=== PATIENT | male | born 1960 | race Caucasian/White ===

== ENCOUNTER 2017-02-28 13:18 | Emergency (ER) | payer OTHER ==
[~2017-02-28] VITALS: Ht 193 cm; Wt 110.0 kg
[2017-02-28 13:20] VITALS: BP 170/100; PULSE 60; RESP 20; TEMP 97.9; O2SAT 97
--- NOTE | 2017-02-28 13:25 | PD ---
Physical Exam Time Seen by Provider: 13:23 Narrative 56 y/o male presents for medical clearance. There was a strange fume in his plane and he was sent here by [employer] for evaluation Vital signs reviewed. seen at triage desk. Awaiting bed placement. Data Data Last Documented VS Vital Signs Date Time Temp Pulse Resp B/P Pulse Ox O2 Delivery O2 Flow Rate FiO2 02/28/17 13:20 97.9 60 20 170/100 97 Room Air [facility] Medical Record Reviewed: Yes Supervised Visit with ABBIE: No Yoni Alvarado Feb 28, 2017 13:25
[2017-02-28] MEDS ORDERED: SODIUM CHLORIDE 0.9% FLUSH 10 ML FLUSH IVF PRN (14:00)
[2017-02-28 14:07] VITALS: BP 152/88; PULSE 55; RESP 20; O2SAT 99
--- NOTE | 2017-02-28 14:08 | PD ---
HPI Chief Complaint: Medical Clearance Time Seen by Provider: 13:40 Travel History International Travel<30 days: No Contact w/Intl Traveler<30days: No Traveled to known affect area: No History of Present Illness HPI 56-year-old male who was apparently at presents to the emergency department sent by [employer] for evaluation. Patient states that there was a weird smell in the cabin of his plane. He states that they are having a problem with oil burning which smells like a dirty sock. 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 He states that he told them that he had some chest heaviness from the smell. He was then referred to the emergency department to rule out OK. The patient states he has some mild heaviness to the upper abdomen. No chest pain at this time. He denies any fevers or chills. He has no chronic medical problems and takes no prescribed medications. He has no cardiac history. He states that he is healthy. He states this pain feels like an upset stomach. He denies any other complaints at this time. [facility] Past Medical History Medical History: Denies Significant Hx Past Surgical History Surgical History: No Previous Surgery Social History Alcohol Use: No Tobacco Use: No Substance Use: No Allergies-Medications (Allergen,Severity, Reaction): Coded Allergies: No Known Allergies (Unverified , 02/28/17) Reported Meds & Prescriptions Reported Meds & Active Scripts Active No Active Prescriptions or Reported Medications Review of Systems Except as stated in HPI: all other systems reviewed are Neg Physical Exam Narrative GENERAL: Well-nourished, well-developed male patient, ambulatory. Afebrile. SKIN: Focused skin assessment warm/dry. HEAD: Normocephalic. Atraumatic. EYES: No scleral icterus. No injection or drainage. NECK: Supple, trachea midline. No JVD or lymphadenopathy. CARDIOVASCULAR: Regular rate and rhythm without murmurs, gallops, or rubs. Bilateral radial and pedal pulses are 2+. RESPIRATORY: Breath sounds equal bilaterally. No accessory muscle use. Lungs sounds are clear to auscultation. GASTROINTESTINAL: Abdomen soft, non-tender, nondistended. MUSCULOSKELETAL: No cyanosis, or edema. BACK: Nontender without obvious deformity. No CVA tenderness. Data Data Last Documented VS Vital Signs Date Time Temp Pulse Resp B/P Pulse Ox O2 Delivery O2 Flow Rate FiO2 02/28/17 14:07 Nasal Cannula 2 02/28/17 14:07 99 02/28/17 14:07 55 20 152/88 02/28/17 13:20 97.9 Orders Electrocardiogram (02/28/17 13:47) Basic Metabolic Panel (Bmp) (02/28/17 13:47) Ckmb (Isoenzyme) Profile (02/28/17 13:47) Complete Blood Count With Diff (02/28/17 13:47) Magnesium (Mg) (02/28/17 13:47) Troponin I (02/28/17 13:47) Chest, Single Ap (02/28/17 13:47) Ecg Monitoring (02/28/17 13:47) Bilateral Bp Monitoring (02/28/17 13:47) Iv Access Insert/Monitor (02/28/17 13:47) Oximetry (02/28/17 13:47) Oxygen Administration (02/28/17 13:47) Sodium Chloride 0.9% Flush (Ns Flush) (02/28/17 14:00) Aspirin Chew (Aspirin Chew) (02/28/17 14:15) CKMB (02/28/17 13:55) CKMB% (02/28/17 13:55) Labs Laboratory Tests Test 02/28/17 13:55 White Blood Count 6.0 TH/MM3 Red Blood Count 4.75 MIL/MM3 Hemoglobin 15.3 GM/DL Hematocrit 42.7 % Mean Corpuscular Volume 89.9 FL Mean Corpuscular Hemoglobin 32.2 PG Mean Corpuscular Hemoglobin 35.8 % Concent Red Cell Distribution Width 13.7 % Platelet Count 257 TH/MM3 Mean Platelet Volume 8.4 FL Neutrophils (%) (Auto) 48.9 % Lymphocytes (%) (Auto) 37.2 % Monocytes (%) (Auto) 9.0 % Eosinophils (%) (Auto) 3.3 % Basophils (%) (Auto) 1.6 % Neutrophils # (Auto) 3.0 TH/MM3 Lymphocytes # (Auto) 2.2 TH/MM3 Monocytes # (Auto) 0.5 TH/MM3 Eosinophils # (Auto) 0.2 TH/MM3 Basophils # (Auto) 0.1 TH/MM3 CBC Comment DIFF FINAL Differential Comment Sodium Level 138 MEQ/L Potassium Level 4.0 MEQ/L Chloride Level 105 MEQ/L Carbon Dioxide Level 26.6 MEQ/L Anion Gap 6 MEQ/L Blood Urea Nitrogen 19 MG/DL Creatinine 1.01 MG/DL Estimat Glomerular Filtration 76 ML/MIN Rate Random Glucose 83 MG/DL Calcium Level 9.0 MG/DL Magnesium Level 2.3 MG/DL Total Creatine Kinase 139 U/L Creatine Kinase MB 2.0 NG/ML Troponin I LESS THAN 0.02 NG/ML MDM Medical Decision Making Medical Screen Exam Complete: Yes Emergency Medical Condition: Yes Medical Record Reviewed: Yes Interpretation(s) Last Impressions Chest X-Ray 02/28/17 1347 Signed Impressions: Service Date/Time: , February 28, 2017 13:48 - CONCLUSION: No acute disease. Shankar Taylor MD Differential Diagnosis ACS versus chest wall pain versus gastroenteritis Narrative Course 56-year-old male presents to the emergency department sent by his work for evaluation. The patient apparently said that he had some chest heaviness after inhaling a weird smell. He was then sent to the emergency department to rule out OK. The patient appears well on exam. He states the pain is in his upper abdomen and feels like an upset stomach. This pain is very atypical. EKG shows sinus bradycardia, heart rate 55, no acute ST changes. CBC, BMP, CK, troponin, magnesium, chest x-ray ordered and pending. CBC shows no acute abnormality. BMP shows no acute abnormality. CK is 139. Troponin is less than 0.02. Magnesium is 2.3. Chest x-ray shows no acute disease. Symptoms are very atypical. The patient states he feels fine and would like to be discharged. I instructed the patient that he needs to follow up for further evaluation as OK cannot be completely ruled out with a chest x-ray, EKG, enzymes. He verbalizes agreement. He is to return for any acute worsening of symptoms. The patient was discharged in stable condition with instructions, including return instructions and follow up instructions. Diagnosis Primary Impression: Atypical chest pain Referrals: Primary Care Physician call for appointment Patient Instructions: Chest Pain (ED), General Instructions Additional Instructions: Follow-up with your primary care physician. Return to the emergency department for any acute worsening of symptoms. Med/Other Pt SpecificInfo: No Change to Meds Scripts No Active Prescriptions or Reported Meds Disposition: 01 DISCHARGE HOME Condition: Stable Steven,Arlyn [employer] [place] [employer] Feb 28, 2017 14:08
[2017-02-28] MEDS ORDERED: ASPIRIN 81 MG CHEW TAB CHEW ONE (14:15)
[2017-02-28 14:17] LABS: BASOPHIL # 0.1 TH/MM3 (0-0.2); BASOPHIL % 1.6 % (0.0-2.0); EOSINOPHIL # 0.2 TH/MM3 (0-0.4); EOSINOPHIL % 3.3 % (0.0-4.0); HEMATOCRIT 42.7 % (39.0-51.0); HEMO FLAGS DIFF FINAL; LYMPH % 37.2 % (9.0-44.0); LYMPHOCYTE # 2.2 TH/MM3 (1.0-4.8); MEAN CELL VOLUME 89.9 FL (80.0-100.0); MEAN CORPUSCULAR HEMOGLOBIN 32.2 PG (27.0-34.0); MEAN CORPUSCULAR HGB CONC 35.8 % (32.0-36.0); NEUT % 48.9 % (16.0-70.0); PLATELET COUNT 257 TH/MM3 (150-450); RED BLOOD COUNT 4.75 MIL/MM3 (4.50-5.90); RED CELL DISTRIBUTION WIDTH 13.7 % (11.6-17.2)
--- NOTE | 2017-02-28 14:21 | RADRPT ---
EXAM DATE/TIME: 02/28/2017 13:48 [facility] COMPARISON: No previous studies available for comparison. INDICATIONS : Chest pain today. MEDICAL HISTORY : None. SURGICAL HISTORY : None. ENCOUNTER: Initial ACUITY: 1 day PAIN SCORE: 3/10 LOCATION: Bilateral chest FINDINGS: A single view of the chest demonstrates the lungs to be symmetrically aerated without evidence of mas s, infiltrate or effusion. The cardiomediastinal contours are unremarkable. Osseous structures are intact. CONCLUSION: No acute disease. Shankar Taylor MD on February 28, 2017 at 14:19 Board Certified Radiologist. This report was verified electronically.
[2017-02-28 14:49] LABS: ANION GAP 6 MEQ/L (5-15); BICARBONATE 26.6 MEQ/L (21.0-32.0); BLOOD UREA NITROGEN 19 MG/DL (7-18); CHLORIDE 105 MEQ/L (98-107); GLOMERULAR FILTRATION RATE 76 ML/MIN (>89); MAGNESIUM 2.3 MG/DL (1.5-2.5); SODIUM (NA) 138 MEQ/L (136-145)
[2017-02-28 14:53] LABS: CREATINE KINASE 139 U/L (39-308)
--- NOTE | 2017-03-01 09:36 | EKG ---
Date Performed: 02/28/2017 Time Performed: 13:51:06 PTAGE: 56 years EKG: SINUS BRADYCARDIA BORDERLINE ECG NO PREVIOUS TRACING DOCTOR: Nam Ch Interpretating Date/Time 03/01/2017 09:32:36
== END 2017-02-28 15:37 | disposition home or self-care (01) ==
LOC: NEPE 13:18
DX: R07.89 Other chest pain (principal)
CPT/HCPCS: 71010; 80048; 82550; 82552; 83735; 84484; 85025; 93005; 99284